=== PATIENT | male | born 1990 | race Caucasian/White ===

== ENCOUNTER 2021-07-23 12:38 | Emergency (ER) | payer BC ==
[2021-07-23] MEDS ORDERED: ERYTHROMYCIN O3.5 GM OU (14:29)
== END 2021-07-23 14:34 | disposition home or self-care (01) ==
LOC: ER1 12:38
DX: S05.01XA Injury of conjunctiva and corneal abrasion without foreign body, right eye, initial encounter (principal); W22.8XXA Striking against or struck by other objects, initial encounter; F17.290 Nicotine dependence, other tobacco product, uncomplicated
CPT/HCPCS: 99283